=== PATIENT | female | born 1960 | race African-American/Black ===

== ENCOUNTER 2016-03-31 10:04 | Emergency (ER) | payer OTHER ==
[2016-03-31 10:24] VITALS: BP 144/70
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
== END 2016-03-31 14:53 | disposition left against medical advice (07) ==
LOC: ER 10:04
DX: M79.605 Pain in left leg (principal); I10 Essential (primary) hypertension; E11.9 Type 2 diabetes mellitus without complications; Z88.6 Allergy status to analgesic agent
CPT/HCPCS: 99281

== ENCOUNTER 2016-06-10 23:27 | Emergency (ER) | payer OTHER ==
[2016-06-10 23:32] VITALS: BP 149/66
[2016-06-11 01:42] LABS: ANION GAP 10 (5-19); BLOOD UREA NITROGEN 14 mg/dL (7-20); CALCIUM 9.1 mg/dL (8.4-10.2); CARBON DIOXIDE 29 mmol/L (22-30); CHLORIDE 104 mmol/L (98-107); CREATININE RESULT 0.56 mg/dL (0.52-1.25); GLUCOSE 163 mg/dL (75-110); MAGNESIUM 1.8 mg/dL (1.6-2.3); POTASSIUM 3.5 mmol/L (3.6-5.0)
[2016-06-11] MEDS ORDERED: METAXALONE 800 MG TABLET PO ONE (02:10)
[2016-06-11] MEDS ORDERED: POTASSIUM CHLORIDE 10 MEQ TABLET.SA PO ONE (02:10)
--- NOTE | 2016-06-11 02:22 | ER Document Report ---
ED General - General Chief Complaint: Leg Pain Stated Complaint: LEG PAIN Notes: Patient is a 56 year old female presents with complaints of spasms in her legs speech is had this multiple times before. She says in the past Skelaxin as helps. She is on hydrochlorothiazide. She does not take any other diuretics. She does take supplemental potassium every day. No fevers. No infections. No chest pain. No shortness of breath. No trauma to her legs. No other complaints at this time. TRAVEL OUTSIDE OF THE [place] IN LAST 30 DAYS: No - Related Data Allergies/Adverse Reactions: codeine Adverse Reaction (Intermediate, Verified 03/31/16 10:37) Nausea Past Medical History - Social History Smoking Status: Unknown if Ever Smoked Frequency of alcohol use: None Drug Abuse: None Family History: Reviewed & Not Pertinent Patient has suicidal ideation: No Patient has homicidal ideation: No - Past Medical History Cardiac Medical History: Reports: Hx Hypertension Endocrine Medical History: Reports: Hx Diabetes Mellitus Type 2 Renal/ Medical History: Denies: Hx Peritoneal Dialysis Musculoskeltal Medical History: Reports Hx Arthritis - KNEES, Reports Hx Musculoskeletal Trauma Past Surgical History: Reports: Hx Oral Surgery - wisdom teeth - Immunizations Hx Diphtheria, Pertussis, Tetanus Vaccination: No Review of Systems - Review of Systems Notes: My Normal Review Basic REVIEW OF SYSTEMS: CONSTITUTIONAL : Denies fever, chills, or sweats. Denies recent illness. CARDIOVASCULAR: Denies chest pain. RESPIRATORY: Denies cough, cold, or chest congestion. Denies shortness of breath, difficulty breathing, or wheezing. GASTROINTESTINAL: Denies abdominal pain. Denies nausea, vomiting, or diarrhea. Denies constipation. Last BM: MUSCULOSKELETAL: Leg cramps SKIN: Denies rash or skin lesions. NEUROLOGICAL: Denies altered mental status or loss of consciousness. Denies headache. Denies weakness or paralysis or loss of use of either side. Denies problems with gait or speech. Denies sensory or motor loss. ALL OTHER SYSTEMS REVIEWED AND NEGATIVE. Physical Exam - Vital signs Vitals: Temp Pulse Resp BP Pulse Ox 98.4 F 92 18 149/66 H 97 06/10/16 23:29 06/10/16 23:29 06/10/16 23:29 06/10/16 23:29 06/10/16 23:29 - Notes Notes: General Appearance: Well nourished, alert, cooperative, no acute distress, no obvious discomfort. Well-appearing. Vitals: reviewed, See vital signs table. Head: no swelling or tenderness to the head Eyes: PERRL, EOMI, Conjuctiva clear Mouth: No decreasd moisturealy Lungs: No wheezing, No rales, No rhonci, No accessory muscle use, good air exchange bilaterally. Heart: Normal rate, Regular rythm, No murmur, no rub Extremities: strength 5/5 in all extremities, good pulses in all extremities, no swelling or tenderness in the extremities, no edema. Skin: warm, dry, appropriate color, no rash Neuro: speech clear, oriented x 3, normal affect, responds appropriately to questions. Course - Vital Signs Vital signs: Temp Pulse Resp BP Pulse Ox 98.4 F 92 18 149/66 H 97 06/10/16 23:29 06/10/16 23:29 06/10/16 23:29 06/10/16 23:29 06/10/16 23:29 - Laboratory Result Diagrams: 06/11/16 01:24 Laboratory results interpreted by me: 06/11/16 01:24 Potassium 3.5 L Glucose 163 H - Transfer of Care Notes: 06/11/16 02:22 Patient replaced back on Skelaxin. Potassium is just slightly low. I did give her extra his potassium here. I encourage him to take her supplemental potassium at home. Encourage return to ER she has any swelling to her legs, worsening pain, chest pain or shortness of breath, or she feels unwell. Patient agrees with plan and will be discharged home. Dictation of this chart was performed using voice recognition software; therefore, there may be some unintended grammatical errors. Discharge - Discharge Clinical Impression: Hypokalemia Leg cramps Qualifiers: Laterality: bilateral Qualified Code(s): R25.2 - Cramp and spasm Condition: Good Disposition: HOME, SELF-CARE Additional Instructions: Please continue to take the potassium pills every day. Please return to the ER immediately if you have worsening leg pain, difficulty breahting, or feel unwell. Prescriptions: Metaxalone [Skelaxin 800 mg Tablet] 800 mg PO ASDIR PRN #20 tablet PRN Reason:
== END 2016-06-11 03:52 | disposition home or self-care (01) ==
LOC: ER 23:27
DX: R25.2 Cramp and spasm (principal); E87.6 Hypokalemia; Z88.6 Allergy status to analgesic agent; I10 Essential (primary) hypertension; E11.9 Type 2 diabetes mellitus without complications
CPT/HCPCS: 99284; 36415; 83735; 80048; J3490

== ENCOUNTER → 2016-08-22 | Outpatient (CLI) | payer OTHER ==
--- NOTE | 2016-08-22 14:15 | WOMENS IMAGING REPORT ---
EXAM DESCRIPTION: BILAT SCREENING MAMMO W/CAD COMPLETED DATE/TIME: 08/22/2016 9:47 am REASON FOR STUDY: ROUTINE SCREENING; Z12.31 Z12.31 ENCNTR SCREEN MAMMOGRAM FOR MALIGNANT NEOPLASM O F MALIKA COMPARISON: None. TECHNIQUE: Standard craniocaudal and mediolateral oblique views of each breast recorded using digita l acquisition. LIMITATIONS: None. FINDINGS: No masses, calcifications or architectural distortion. No areas of suspicion. Read with the assistance of CAD. .[facility] - R2 Cenova Version 1.3 .[facility] - R2 Cenova Version 1.3 .[facility] - R2 Cenova Version 2.4 .[facility] - R2 Cenova Version 2.4 .[facility] - R2 Cardiovascular Tech Version 9.2 IMPRESSION: NORMAL MAMMOGRAM. BIRADS 1. BREAST DENSITY: a. The breasts are almost entirely fatty. BIRAD: 1 NEGATIVE RECOMMENDATION: ROUTINE SCREENING COMMENT: The patient has been notified of the results by letter per SA requirements. Additional no tification policies are in place for contacting patient with suspicious or incomplete findings. Quality ID #[id number]: The [employer] recommends an annual screening mammogram for women aged 40 years or over. This facility utilizes a reminder system to ensure that all patients receive reminder letters, and/or direct phone calls for appointments. This includes reminders for routine scr eening mammograms, diagnostic mammograms, or other Breast Imaging Interventions when appropriate. Th is patient will be placed in the appropriate reminder system. The [employer] (ACR) has developed recommendations for screening MRI of the breast s in certain patient populations, to be used in conjunction with mammography. Breast MRI surveillanc e may be appropriate for women with more than 20% lifetime risk of developing breast cancer as deter mined by genetic testing, significant family history of the disease, or history of mantle radiation f or Hodgkins Disease. ACR Practice Guidelines 2008. TECHNICAL DOCUMENTATION: FINDING NUMBER: (1) ASSESSMENT: (1) JOB ID: [id number] [employer]- All Rights Reserved
== END ==
LOC: WI 09:00
PROVIDERS: ATTEND Physician Assistant
DX: Z12.31 Encounter for screening mammogram for malignant neoplasm of breast (principal)
CPT/HCPCS: 77067; G0202

== ENCOUNTER 2016-11-18 00:56 | Emergency (ER) | payer OTHER ==
[2016-11-18 01:19] VITALS: BP 124/70
--- NOTE | 2016-11-18 01:38 | ER Document Report ---
ED General - General Mode of Arrival: Ambulatory Information source: Patient TRAVEL OUTSIDE OF THE [place] IN LAST 30 DAYS: No - HPI Onset: Other - Refer to HPI notes - General Chief Complaint: Productive Cough Stated Complaint: CONGESTION Time Seen by Provider: 11/18/16 01:24 Notes: Patient is a 56 year old female presenting to the emergency department for cold- like symptoms. Patient states she has had a productive cough with brown sputum, rhinorrhea, and general malaise for the past 2-3 days. Patient states that she has been taking Zyrtec and cough syrup. Patient's PCP is [facility]. Patient has a history of type II diabetes mellitus, hypertension, and hypercholesterolemia. Patient takes a daily Aspirin. 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 (KATIE CRAVEN) - Related Data Allergies/Adverse Reactions: codeine Adverse Reaction (Intermediate, Verified 11/18/16 01:01) Nausea Past Medical History - General Information source: Patient - Social History Smoking Status: Never Smoker Cigarette use (# per day): No Chew tobacco use (# tins/day): No Smoking Education Provided: No Frequency of alcohol use: Rare Drug Abuse: None Family History: None Patient has suicidal ideation: No Patient has homicidal ideation: No - Past Medical History Cardiac Medical History: Reports: Hx Hypercholesterolemia, Hx Hypertension Endocrine Medical History: Reports: Hx Diabetes Mellitus Type 2 Musculoskeltal Medical History: Reports Hx Arthritis - KNEES, Reports Hx Musculoskeletal Trauma Past Surgical History: Reports: Hx Oral Surgery - wisdom teeth - Immunizations Hx Diphtheria, Pertussis, Tetanus Vaccination: No Review of Systems - Review of Systems Constitutional: See HPI, Malaise. denies: Fever EENT: See HPI, Nose congestion, Nose discharge Cardiovascular: No symptoms reported. denies: Chest pain Respiratory: See HPI, Cough. denies: Short of breath Gastrointestinal: denies: Nausea, Vomiting Physical Exam - Vital signs Interpretation: Normal - Vital signs Vitals: Temp Pulse Resp BP Pulse Ox 97.5 F 88 20 124/70 98 11/18/16 01:01 11/18/16 01:01 11/18/16 01:01 11/18/16 01:01 11/18/16 01:01 - Notes Notes: GENERAL: Alert, interacts well. No acute distress. HEAD: Normocephalic, atraumatic. EYES: Pupils equal, round, and reactive to light. Extraocular movements intact. ENT: Oral mucosa moist, tongue midline. Postnasal drip. Clear rhinorrhea, no turbinate edema, nares patent, no nasal septal hematoma, TM's are cloudy and slightly bulging NECK: Full range of motion. Supple. Trachea midline. LUNGS: Clear to auscultation bilaterally, no wheezes, rales, or rhonchi. No respiratory distress. HEART: Regular rate and rhythm. No murmurs, gallops, or rubs. ABDOMEN: Soft, non-tender. Non-distended. Bowel sounds present in all 4 quadrants. EXTREMITIES: Moves all 4 extremities spontaneously. No edema, radial and dorsalis pedis pulses 2/4 bilaterally. No cyanosis. NEUROLOGICAL: Alert and oriented x3. Normal speech. PSYCH: Normal affect, normal mood. SKIN: Warm, dry, normal turgor. No rashes or lesions noted. (KATIE CRAVEN) Course - Re-evaluation Re-evalutation: 11/18/16 01:38 Lungs are clear, no evidence of pneumonia, no indication for chest x-ray, discussed treatment for viral upper respiratory infection and symptomatic care. Discharged home. (RICHARD ALBERT) - Vital Signs Vital signs: Temp Pulse Resp BP Pulse Ox 97.5 F 88 20 124/70 98 11/18/16 01:01 11/18/16 01:01 11/18/16 01:01 11/18/16 01:01 11/18/16 01:01 Discharge - Discharge Clinical Impression: Viral upper respiratory tract infection with cough Condition: Stable Disposition: HOME, SELF-CARE Additional Instructions: Upper Respiratory Illness You have a viral infection of the respiratory passages -- a "cold." This common infection causes nasal congestion, drainage, and often sore throat and cough. It is caused by a virus and is highly contagious. The disease usually lasts a week or more, though the worst symptoms are usually over in 5 or 6 days. There is no "cure" for the viral infection -- it must run its course. If you smoke, you should STOP!! Drink plenty of fluids. A humidifier may help. An expectorant medication or decongestant may make you more comfortable. Use acetaminophen or ibuprofen for fever or aches. See the doctor if fever persists over two or three days, if there is any significant worsening of your symptoms, or if you simply fail to improve as expected. Please use nasal saline rinses such as a NetiPot or NeilMed Sinus Rinses. You may take Claritin, Zyrtec, Benadryl or any of your choice of over-the- counter antihistamines according to the instructions on the box to decrease your nasal congestion. Use nasal steroids such as Nasonex 1 squirt twice a day per nostril. Prescriptions: Benzonatate [Tessalon Perles 100 mg Capsule] 100 mg PO Q8HP PRN #30 capsule PRN Reason: Fluticasone Propionate [Flonase Nasal Phoenix 50 Mcg/Phoenix 16 gm] 1 spray NASL Q12 #1 inhaler Forms: Return to Work Referrals: ANEL NEWMAN MD [Primary Care Provider] - Follow up as needed Scribe Attestation: 11/18/16 05:31 I personally performed the services described in the documentation, reviewed and edited the documentation which was dictated to the scribe in my presence, and it accurately records my words and actions. (RICHARD ALBERT) Scribe Documentation - Scribe Written by Michelle:: Michelle Ma, 11/18/2016 4:20 acting as scribe for :: Tutu
== END 2016-11-18 01:54 | disposition home or self-care (01) ==
LOC: ER 00:56
DX: J06.9 Acute upper respiratory infection, unspecified (principal); B34.9 Viral infection, unspecified; R05 Cough; R09.81 Nasal congestion; R53.81 Other malaise; Z79.899 Other long term (current) drug therapy; E11.9 Type 2 diabetes mellitus without complications; I10 Essential (primary) hypertension; E78.00 Pure hypercholesterolemia, unspecified; Z79.82 Long term (current) use of aspirin
CPT/HCPCS: 99283

== ENCOUNTER 2017-01-28 12:22 | Emergency (ER) | payer OTHER ==
[2017-01-28] MEDS ORDERED: TRAMADOL HCL 50 MG TABLET PO ONE (13:14)
--- NOTE | 2017-01-28 13:17 | ER Document Report ---
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 Patient states she has had pain with ambulation since then. Patient complains of increased pain with flexion. Associated Symptoms: Other - Left knee injury Exacerbated by: Standing, Movement, Walking Relieved by: Denies Similar symptoms previously: No Recently seen / treated by doctor: No - ROS ROS below otherwise negative: Yes Systems Reviewed and Negative: Yes All other systems reviewed and negative - CONSTITUTIONAL Constitutional: DENIES: Fever - NEURO Neurology: DENIES: Weakness - REPRODUCTIVE Reproductive: DENIES: : - MUSCULOSKELETAL Musculoskeletal: REPORTS: Extremity pain - DERM Skin Color: Normal Skin Problems: None Past Medical History - General Information source: Patient - Social History Smoking Status: Never Smoker Frequency of alcohol use: None Drug Abuse: None 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 Lives with: Family Family History: None - Past Medical History Cardiac Medical History: Reports: Hx Hypercholesterolemia, Hx Hypertension Endocrine Medical History: Reports: Hx Diabetes Mellitus Type 2 Renal/ Medical History: Denies: Hx Peritoneal Dialysis Musculoskeltal Medical History: Reports Hx Arthritis - KNEES, Reports Hx Musculoskeletal Trauma Past Surgical History: Reports: Hx Oral Surgery - wisdom teeth - Immunizations Hx Diphtheria, Pertussis, Tetanus Vaccination: No Vertical Provider Document - CONSTITUTIONAL Agree With Documented VS: Yes Exam Limitations: No Limitations General Appearance: WD/WN, No Apparent Distress - INFECTION CONTROL TRAVEL OUTSIDE OF THE [place] IN LAST 30 DAYS: No - HEENT HEENT: Atraumatic, Normocephalic - NECK Neck: Normal Inspection - RESPIRATORY Respiratory: No Respiratory Distress O2 Sat by Pulse Oximetry: 100 - CARDIOVASCULAR Pulses: Normal: Dorsalis pedis - MUSCULOSKELETAL/EXTREMETIES Musculoskeletal/Extremeties: MAEW, Tender - Left knee joint tenderness to medial compartment, no obvious effusion, no laxity with varus or valgus maneuvers. Patellar tendon intact. negative: Eccymosis - NEURO Level of Consciousness: Awake, Alert, Appropriate Motor/Sensory: No Motor Deficit - DERM Integumentary: Warm, Dry Course - Vital Signs Vital signs: Temp Pulse Resp BP Pulse Ox 97.8 F 78 20 160/66 H 100 01/28/17 12:43 01/28/17 12:43 01/28/17 12:43 01/28/17 12:43 01/28/17 12:43 - Diagnostic Test Radiology reviewed: Image reviewed, Reports reviewed Procedures - Immobilization Left Knee Pre-Proc Neuro Vasc Exam: Normal Immobilizer type: Glen wrap Performed by: PCT Post-Proc Neuro Vasc Exam: Normal Alignment checked and good: Yes Discharge - Discharge Clinical Impression: Hx of essential hypertension Left knee sprain Qualifiers: Encounter type: initial encounter Involved ligament of knee: unspecified ligament Qualified Code(s): S83.92XA - Sprain of unspecified site of left knee, initial encounter Condition: Stable Disposition: HOME, SELF-CARE Instructions: Use of Crutches ([facility]), Ice & Elevation ([facility]), Sprained Knee ([facility]) Additional Instructions: Return immediately for any new or worsening symptoms Followup with your primary care provider, call tomorrow to make a followup appointment Weightbearing as tolerated Follow-up with orthopedic doctor for any continued pain or problems Prescriptions: Tramadol HCl [Ultram 50 mg Tablet] 50 mg PO ASDIR PRN #20 tablet PRN Reason: Forms: Elevated Blood Pressure, Return to Work Referrals: [facility] ([facility]ANIEL) [Provider Group] - Follow up as needed
--- NOTE | 2017-01-28 14:16 | RADIOLOGY REPORT (SQ) ---
EXAM DESCRIPTION: KNEE LEFT 4 VIEW COMPLETED DATE/TIME: 01/28/2017 1:44 pm REASON FOR STUDY: twisted left knee COMPARISON: None. NUMBER OF VIEWS: Four views. TECHNIQUE: AP, lateral, and both oblique radiographic images acquired of the left knee. LIMITATIONS: None. FINDINGS: MINERALIZATION: Normal. BONES: No fracture. Small osteochondroma proximal tibia. JOINT: No effusion. SOFT TISSUES: No soft tissue swelling. No radio-opaque foreign body. OTHER: No other significant finding. IMPRESSION: NO RADIOGRAPHIC EVIDENCE OF ACUTE INJURY. TECHNICAL DOCUMENTATION: JOB ID: [id number] [employer]- All Rights Reserved
[2017-01-28 15:08] VITALS: BP 177/75
== END 2017-01-28 15:08 | disposition home or self-care (01) ==
LOC: ER 12:22
DX: S83.92XA Sprain of unspecified site of left knee, initial encounter (principal); M25.561 Pain in right knee; X58.XXXA Exposure to other specified factors, initial encounter
CPT/HCPCS: 99283

== ENCOUNTER → 2017-02-03 | Outpatient (CLI) | payer OTHER ==
--- NOTE | 2017-02-04 13:14 | RADIOLOGY REPORT (SQ) ---
EXAM DESCRIPTION: MRI LT LOWER JOINT WITHOUT COMPLETED DATE/TIME: 02/03/2017 11:21 am REASON FOR STUDY: PERIPHERAL TEAR OF MEDIAL MENISCUS OF LEFT KNEE S83.222A PRPH TEAR OF MEDIAL MENI SCUS, CURRENT INJURY, L KNE COMPARISON: Plain radiograph TECHNIQUE: Leftknee images acquired and stored on PACS. Multiplanar images include fat sensitive se quences as T1, water sensitive sequences as FST2 or STIR, cartilage sensitive sequences as FSPD, and gradient echo sequences. LIMITATIONS: None. FINDINGS: JOINT AND BURSAE: Joint effusion. No popliteal cyst. BONE CORTEX AND MARROW: No alteration of signal to suggest marrow replacement. No worrisome bone lesi ons. No occult fracture. ACL: Intact. No degeneration or ganglion cyst. PCL: Intact. MCL: Intact. No periligamentous edema or fluid. LCL: Intact. No periligamentous edema or fluid. MEDIAL MENISCUS: Flap tear posteromedial meniscus. No subluxation. LATERAL MENISCUS: Flap tear posterior horn. MEDIAL COMPARTMENT: Cartilage preserved. No bone bruises or reactive marrow edema. No osteophytes. LATERAL COMPARTMENT: Cartilage preserved. No bone bruises or reactive marrow edema. No osteophytes. PATELLA: Chondromalacia most prominent medial facet. Loss of medial trochlear cartilage. Patellofem oral osteophytes. EXTENSOR MECHANISM: Intact. Quadriceps and patella tendons normal. SOFT TISSUES: Adjacent muscles and subcutaneous tissues normal. Normal flow void in popliteal artery and vein. OTHER: No other significant finding. IMPRESSION: Flap tears of the posterior horns of both menisci. Patellar chondromalacia and patellofemoral osteophytes. Joint effusion. TECHNICAL DOCUMENTATION: JOB ID: [id number] [employer]- All Rights Reserved
== END ==
LOC: RAD 10:26
PROVIDERS: ATTEND Orthopaedic Surgery
DX: S83.222A Peripheral tear of medial meniscus, current injury, left knee, initial encounter (principal); M22.42 Chondromalacia patellae, left knee

== ENCOUNTER 2017-03-27 10:31 | Emergency (ER) | payer OTHER ==
[2017-03-27 10:37] VITALS: BP 149/60
== END 2017-03-27 11:54 | disposition left against medical advice (07) ==
LOC: ER 10:31
DX: Z53.21 Procedure and treatment not carried out due to patient leaving prior to being seen by health care provider (principal); M79.606 Pain in leg, unspecified

== ENCOUNTER 2017-04-02 08:59 | Emergency (ER) | payer OTHER ==
--- NOTE | 2017-04-02 10:10 | RADIOLOGY REPORT (SQ) ---
EXAM DESCRIPTION: KNEE RIGHT 4 VIEWS COMPLETED DATE/TIME: 04/02/2017 10:01 am REASON FOR STUDY: fall on sunday COMPARISON: None. NUMBER OF VIEWS: Four views. TECHNIQUE: AP, lateral, and both oblique radiographic images acquired of the right knee. LIMITATIONS: None. FINDINGS: MINERALIZATION: Normal. BONES: No acute fracture or dislocation. No worrisome bone lesions. Osteoarthritis. JOINT: No effusion. SOFT TISSUES: No soft tissue swelling. No radio-opaque foreign body. OTHER: No other significant finding. IMPRESSION: No acute fracture. Osteoarthritis. TECHNICAL DOCUMENTATION: JOB ID: [id number] [employer]- All Rights Reserved
--- NOTE | 2017-04-02 10:11 | RADIOLOGY REPORT (SQ) ---
EXAM DESCRIPTION: KNEE LEFT 4 VIEW COMPLETED DATE/TIME: 04/02/2017 10:01 am REASON FOR STUDY: fall on sunday COMPARISON: 01/28/2017 NUMBER OF VIEWS: Four views. TECHNIQUE: AP, lateral, and both oblique radiographic images acquired of the left knee. LIMITATIONS: None. FINDINGS: MINERALIZATION: Normal. BONES: No acute fracture or dislocation. No worrisome bone lesions. 3 compartment osteoarthritis. JOINT: Small joint effusion. SOFT TISSUES: No soft tissue swelling. No radio-opaque foreign body. OTHER: No other significant finding. IMPRESSION: Small joint effusion. 3 compartment osteoarthritis. TECHNICAL DOCUMENTATION: JOB ID: [id number] [employer]- All Rights Reserved
[2017-04-02] MEDS ORDERED: IBUPROFEN 800 MG TABLET PO ONE (10:29)
[2017-04-02] MEDS ORDERED: ACETAMINOPHEN 325 MG TABLET PO ONE (10:29)
--- NOTE | 2017-04-02 10:34 | ER Document Report ---
HPI - HPI Patient complains to provider of: fell 1 week ago Onset: Last week Onset/Duration: Sudden Pain Level: 4 Context: 56 yo female fell forward 1 week ago onto both knees, also "hurt" it pulling on 400 pound pt at work. Hx left medial meniscal tear on MR and bryon. knee severe arthritis. 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 [employer] Similar symptoms previously: Yes Recently seen / treated by doctor: No - ROS ROS below otherwise negative: Yes Systems Reviewed and Negative: Yes All other systems reviewed and negative - REPRODUCTIVE Reproductive: DENIES: : - MUSCULOSKELETAL Musculoskeletal: REPORTS: Extremity pain Past Medical History - General Information source: Patient - Social History Smoking Status: Never Smoker Chew tobacco use (# tins/day): No Frequency of alcohol use: None Drug Abuse: None Lives with: Family Family History: None Patient has suicidal ideation: No Patient has homicidal ideation: No - Past Medical History Cardiac Medical History: Reports: Hx Hypercholesterolemia, Hx Hypertension Endocrine Medical History: Reports: Hx Diabetes Mellitus Type 2 Renal/ Medical History: Denies: Hx Peritoneal Dialysis Musculoskeltal Medical History: Reports Hx Arthritis - KNEES, Reports Hx Musculoskeletal Trauma Surgical Hx: Negative Past Surgical History: Reports: Hx Oral Surgery - wisdom teeth - Immunizations Hx Diphtheria, Pertussis, Tetanus Vaccination: No Vertical Provider Document - CONSTITUTIONAL Agree With Documented VS: Yes Exam Limitations: No Limitations General Appearance: No Apparent Distress - INFECTION CONTROL TRAVEL OUTSIDE OF THE [place] IN LAST 30 DAYS: No - HEENT HEENT: Normocephalic - NECK Neck: Supple - RESPIRATORY O2 Sat by Pulse Oximetry: 99 - MUSCULOSKELETAL/EXTREMETIES Musculoskeletal/Extremeties: MAEW, FROM, Tender - left knee, mild effusion, not hot or red - NEURO Level of Consciousness: Awake, Alert, Appropriate Motor/Sensory: No Motor Deficit, No Sensory Deficit - DERM Integumentary: Warm, Dry, No Rash Course - Re-evaluation Re-evalutation: 04/02/17 arthrits bryon on xray, small effusion left knee - Vital Signs Vital signs: Temp Pulse Resp BP Pulse Ox 98.6 F 67 16 173/79 H 99 04/02/17 09:28 04/02/17 09:28 04/02/17 09:28 04/02/17 09:04/02/17 09:28 Discharge - Discharge Clinical Impression: small left knee joint effusion, arthritis bilateral knees Condition: Good Disposition: HOME, SELF-CARE Instructions: Acetaminophen, Anti-Inflammatory Medication ([facility]), Arthritis ([facility] ), Use of Crutches ([facility]), Elevation & Warmth ([facility]) Additional Instructions: elevate warm compress see dr ferreira again for follow up to er any concerns Prescriptions: Ibuprofen [Motrin 800 mg Tablet] 800 mg PO Q8HP PRN #30 tablet PRN Reason: Forms: Restricted Release, Return to Work Referrals: SHERLY FERREIRA MD [ACTIVE STAFF] - Follow up tomorrow
[2017-04-02 11:02] VITALS: BP 153/76
== END 2017-04-02 11:08 | disposition home or self-care (01) ==
LOC: ER 08:59
DX: M25.462 Effusion, left knee (principal); M17.0 Bilateral primary osteoarthritis of knee; M25.561 Pain in right knee; M25.562 Pain in left knee; W19.XXXA Unspecified fall, initial encounter; X50.0XXA Overexertion from strenuous movement or load, initial encounter
CPT/HCPCS: 99283

== ENCOUNTER 2017-07-16 18:08 | Emergency (ER) | payer SELFPAY ==
[2017-07-16 18:17] VITALS: BP 182/80
== END 2017-07-16 21:50 | disposition left against medical advice (07) ==
LOC: ER 18:08
DX: Z53.21 Procedure and treatment not carried out due to patient leaving prior to being seen by health care provider (principal)

== ENCOUNTER 2018-01-30 17:16 | Emergency (ER) | payer MEDICAID, OTHER ==
--- NOTE | 2018-01-30 18:10 | ER Document Report ---
ED Medical Screen (RME) - General Chief Complaint: Rectal Bleeding Stated Complaint: BACK PAIN, LEFT SIDE PAIN Time Seen by Provider: 01/30/18 18:08 Notes: 57 years old female presents today with hemorrhoid and hemorrhoid bleed on and off for the last few days. With abdominal pain TRAVEL OUTSIDE OF THE [place] IN LAST 30 DAYS: No - Related Data Allergies/Adverse Reactions: codeine Adverse Reaction (Intermediate, Verified 01/30/18 17:19) Nausea Past Medical History - Social History Frequency of alcohol use: None Drug Abuse: None - Past Medical History Cardiac Medical History: Reports: Hx Hypercholesterolemia, Hx Hypertension Endocrine Medical History: Reports: Hx Diabetes Mellitus Type 2 Renal/ Medical History: Denies: Hx Peritoneal Dialysis Musculoskeltal Medical History: Reports Hx Arthritis - KNEES, Reports Hx Musculoskeletal Trauma Past Surgical History: Reports: Hx Oral Surgery - wisdom teeth - Immunizations Hx Diphtheria, Pertussis, Tetanus Vaccination: No Physical Exam - Vital signs Vitals: Temp Pulse Resp BP Pulse Ox 97.9 F 70 20 147/66 H 100 01/30/18 17:31 01/30/18 17:31 01/30/18 17:31 01/30/18 17:31 01/30/18 17:31 Course - Vital Signs Vital signs: Temp Pulse Resp BP Pulse Ox 97.9 F 70 20 147/66 H 100 01/30/18 17:31 01/30/18 17:31 01/30/18 17:31 01/30/18 17:31 01/30/18 17:31
--- NOTE | 2018-01-30 20:16 | ER Document Report ---
ED Extremity Problem, Upper - General Chief Complaint: Rectal Bleeding Stated Complaint: BACK PAIN, LEFT SIDE PAIN Time Seen by Provider: 01/30/18 18:08 Mode of Arrival: Ambulatory Information source: Patient Notes: 57-year-old female presented to ED for complaint of upper back right shoulder pain for the last 3 weeks. She states that for the last week she has had some very hard stools and when she has a hard stool she will have some bleeding with the stool and it only last for her wiping herself after the stool. She states she has had some abdominal cramping with the constipation but that is not why she is here today. She states she is here today for the upper back and shoulder pain. Patient is alert and oriented respirations regular and unlabored speaking in full sentences. TRAVEL OUTSIDE OF THE [place] IN LAST 30 DAYS: No - HPI Patient complains to provider of: Pain, Right, Shoulder, Other - Right upper back Onset: Other - 3-4 weeks Recent injury: Possibly Quality of pain: Achy, Cramping, Sharp Pain Level: 4 Associated symptoms: Other - Right shoulder and upper back pain Exacerbated by: Movement, Exertion Relieved by: Nothing Similar symptoms previously: Yes Recently seen / treated by doctor: Yes - Related Data Allergies/Adverse Reactions: codeine Adverse Reaction (Intermediate, Verified 01/30/18 17:19) Nausea Past Medical History - General Information source: Patient - Social History Smoking Status: Never Smoker Cigarette use (# per day): No Chew tobacco use (# tins/day): No Smoking Education Provided: No Frequency of alcohol use: None Drug Abuse: None Lives with: Family Family History: None Patient has suicidal ideation: No Patient has homicidal ideation: No - Past Medical History Cardiac Medical History: Reports: Hx Hypercholesterolemia, Hx Hypertension Pulmonary Medical History: Reports: None EENT Medical History: Reports: None Neurological Medical History: Reports: None Endocrine Medical History: Reports: Hx Diabetes Mellitus Type 2 Renal/ Medical History: Reports: None Malignancy Medical History: Reports: None GI Medical History: Reports: None Musculoskeletal Medical History: Reports Hx Arthritis - KNEES, Reports Hx Musculoskeletal Trauma Skin Medical History: Reports None Psychiatric Medical History: Reports: None Traumatic Medical History: Reports: None Infectious Medical History: Reports: None Past Surgical History: Reports: Hx Oral Surgery - wisdom teeth - Immunizations Hx Diphtheria, Pertussis, Tetanus Vaccination: No Review of Systems - Review of Systems Constitutional: No symptoms reported EENT: No symptoms reported Cardiovascular: No symptoms reported Respiratory: No symptoms reported Gastrointestinal: Other - Blood on the paper when she has a hard bowel movement during constipation. She states that now she is back on her Metformin she does not constipated Genitourinary: No symptoms reported Female Genitourinary: No symptoms reported Musculoskeletal: Back pain - Pain to the right upper back and right shoulder for 3-4 weeks, Muscle pain, Muscle stiffness Skin: No symptoms reported Hematologic/Lymphatic: No symptoms reported Neurological/Psychological: No symptoms reported -: Yes All other systems reviewed and negative Physical Exam - Vital signs Vitals: Temp Pulse Resp BP Pulse Ox 97.9 F 70 20 147/66 H 100 01/30/18 17:31 01/30/18 17:31 01/30/18 17:31 01/30/18 17:31 01/30/18 17:31 Interpretation: Normal - General General appearance: Appears well, Alert - HEENT Head: Normocephalic, Atraumatic Eyes: Normal Pupils: PERRL - Respiratory Respiratory status: No respiratory distress Chest status: Nontender Breath sounds: Normal Chest palpation: Normal - Cardiovascular Rhythm: Regular Heart sounds: Normal auscultation Murmur: No - Abdominal Inspection: Normal Distension: No distension Bowel sounds: Normal Tenderness: Nontender Organomegaly: No organomegaly - Rectal Tenderness: Yes Hemorrhoids: None - Back Back: Normal, Tender - Right upper back right shoulder. No: Vertebra tenderness - Extremities General upper extremity: Normal inspection, Normal color, Normal ROM, Normal temperature General lower extremity: Normal inspection, Nontender, Normal color, Normal ROM , Normal temperature, Normal weight bearing. No: Gonzales's sign Shoulder: Tender. No: Abrasion, Deformity, Dislocation, Ecchymosis, Instability , Laceration, Limited ROM - Neurological Neuro grossly intact: Yes Cognition: Normal Orientation: AAOx4 Cardinal Coma Scale Eye Opening: Spontaneous Cardinal Coma Scale Verbal: Oriented Tashi Coma Scale Motor: Obeys Commands Cardinal Coma Scale Total: 15 Speech: Normal Motor strength normal: LUE, RUE, LLE, RLE Sensory: Normal - Psychological Associated symptoms: Normal affect, Normal mood - Skin Skin Temperature: Warm Skin Moisture: Dry Skin Color: Normal Course - Vital Signs Vital signs: Temp Pulse Resp BP Pulse Ox 98.3 F 66 20 147/72 H 99 01/30/18 21:37 01/30/18 21:37 01/30/18 17:31 01/30/18 21:37 01/30/18 21:37 - Diagnostic Test Radiology reviewed: Image reviewed, Reports reviewed Discharge - Discharge Clinical Impression: Scoliosis of thoracic region due to degenerative disease of spine in adult, arthritis upper back Condition: Stable Disposition: HOME, SELF-CARE Instructions: Exercise Program for the Shoulder ([facility]), Stretching Exercises for the Back ([facility]) Additional Instructions: Arthritis Your symptoms are due to arthritis. Arthritis is an inflammation of the joints. There are many types -- osteoarthritis (due to "wear and tear"), auto- immmune arthritis (such as rheumatoid, lupus, Harshad's, and others), and crystal -induced arthritis (such as gout and pseudogout). The physician's examination, combined with laboratory tests, will determine the cause of your arthritis. All types of arthritis are treated with antiinflammatory medications. Other medication may be required for special types of arthritis, or if your problem does not respond to the antiinflammatory medicine. Local warmth may be helpful. Move the involved joints through the full range of motion daily. Mild exercise is usually still possible for most persons with arthritis (ask your physician). Swimming provides good exercise without damaging the joints. Contact the physician if you are worsening in any way. MUSCLE RELAXERS: Muscle relaxing medications are usually prescribed for acute muscle spasm or injury to the neck and back. They are often combined with antiinflammatory pain medication for increased relief. You may stop the muscle relaxer when the pain and stiffness have improved. Start the medication again if spasms recur. Muscle relaxers may cause drowsiness, especially with the first dose. Do not operate machinery or drive while under the effects of the medication. Most muscle relaxers last up to 24 hours. Do not combine the medication with alcohol. ICE PACKS: Apply ice packs frequently against the painful area. Many different schedules are recommended, such as "20 minutes on, 20 minutes off" or "one hour ice, two hours rest." If you need to work, you may need to go longer between ice treatments. You should plan to have the area ice packed AT LEAST one fourth of the time. The ice should be applied over the wrap, tape, or splint, or over a layer of cloth -- not directly against the skin. Some ice bags have a built-in cloth and can be put directly on the skin. WARM PACKS: After approximately two days, apply gentle heat (such as a heating pad or hot water bottle) for about 20 to 30 minutes about every two hours -- at least four times daily. Warmth and elevation will help you make a more rapid recovery , and will ease the pain considerably. Do not use HOT heat, and never apply heat for longer than 30 minutes. The continuous heat can invisibly damage skin and muscles -- even when no burn is seen on the surface. Damaged muscles can make you MORE sore. FOLLOW-UP CARE: If you have been referred to a physician for follow-up care, call the physician s office for an appointment as you were instructed or within the next two days. If you experience worsening or a significant change in your symptoms, notify the physician immediately or return to the Emergency Department at any time for re-evaluation. These call your primary doctor in the morning to schedule follow-up appointment and get referral to a mechanical service specialist for your back pain. As I discussed with you your x-ray showed scoliosis and arthritis. Please take your x-rays with you to the appointment. Prescriptions: Cyclobenzaprine HCl [Flexeril 10 mg Tablet] 10 mg PO BIDP PRN #10 tab PRN Reason: Forms: Elevated Blood Pressure
--- NOTE | 2018-01-30 20:44 | RADIOLOGY REPORT (SQ) ---
EXAM DESCRIPTION: T SPINE AP/LAT COMPLETED DATE/TIME: 01/30/2018 8:28 pm REASON FOR STUDY: pain in upper back and right shoulder COMPARISON: None. NUMBER OF VIEWS: Two views. TECHNIQUE: AP and lateral radiographic images acquired of the thoracic spine. LIMITATIONS: None. FINDINGS: MINERALIZATION: Normal. ALIGNMENT: Mild scoliosis in the lower thoracic spine. VERTEBRAE: No fracture or bone lesion. Maintained height, normal segmentation. DISCS: Disc spaces are maintained. There are bridging osteophytes in the midthoracic spine. HARDWARE: None in the spine. MEDIASTINUM AND SOFT TISSUES: Normal heart size and aortic contour. No soft tissue abnormality. VISUALIZED LUNG SAHU: Clear. OTHER: No other significant finding. IMPRESSION: Scoliosis. Spondylosis. No acute findings. TECHNICAL DOCUMENTATION: JOB ID: [id number] [employer]- All Rights Reserved Reading location - IP/workstation name: [email or web address]
--- NOTE | 2018-01-30 20:44 | RADIOLOGY REPORT (SQ) ---
EXAM DESCRIPTION: SHOULDER RIGHT 2 OR MORE VIEWS COMPLETED DATE/TIME: 01/30/2018 8:28 pm REASON FOR STUDY: pain in upper back and right shoulder COMPARISON: None. NUMBER OF VIEWS: Three views. TECHNIQUE: Internal rotation, external rotation, and Y view images acquired of the right shoulder. LIMITATIONS: None. FINDINGS: MINERALIZATION: Normal. BONES: No acute fracture or dislocation. No worrisome bone lesions. JOINTS: No dislocation. VISUALIZED LUNGS AND RIBS: No pneumothorax. No rib fracture. SOFT TISSUES: No radiopaque foreign body. OTHER: No other significant finding. IMPRESSION: NEGATIVE STUDY OF THE RIGHT SHOULDER. NO RADIOGRAPHIC EVIDENCE OF ACUTE INJURY. TECHNICAL DOCUMENTATION: JOB ID: [id number] [employer]- All Rights Reserved Reading location - IP/workstation name: [email or web address]
--- NOTE | 2018-01-30 20:45 | RADIOLOGY REPORT (SQ) ---
EXAM DESCRIPTION: CHEST 2 VIEWS COMPLETED DATE/TIME: 01/30/2018 8:28 pm REASON FOR STUDY: upper back pain COMPARISON: None. EXAM PARAMETERS: NUMBER OF VIEWS: two views TECHNIQUE: Digital Frontal and Lateral radiographic views of the chest acquired. RADIATION DOSE: NA LIMITATIONS: none FINDINGS: LUNGS AND PLEURA: No opacities, masses or pneumothorax. No pleural effusion. MEDIASTINUM AND HILAR STRUCTURES: No masses or contour abnormalities. HEART AND VASCULAR STRUCTURES: Heart normal size. No evidence for failure. BONES: No acute findings. HARDWARE: None in the chest. OTHER: No other significant finding. IMPRESSION: NO ACUTE RADIOGRAPHIC FINDING IN THE CHEST. TECHNICAL DOCUMENTATION: JOB ID: [id number] Robert Applebaum MD- All Rights Reserved Reading location - IP/workstation name: [email or web address]
[2018-01-30 21:38] VITALS: BP 147/72
== END 2018-01-30 21:48 | disposition home or self-care (01) ==
LOC: ER 17:16
DX: M51.34 Other intervertebral disc degeneration, thoracic region (principal); M41.54 Other secondary scoliosis, thoracic region; M47.9 Spondylosis, unspecified; M25.511 Pain in right shoulder; K62.5 Hemorrhage of anus and rectum; I10 Essential (primary) hypertension; E11.9 Type 2 diabetes mellitus without complications
CPT/HCPCS: 71046; 72070; 82272; 99284

== ENCOUNTER 2018-05-30 19:55 | Emergency (ER) | payer MEDICAID ==
--- NOTE | 2018-05-30 21:11 | ER Document Report ---
Addendum entered and electronically signed by KENNEDI WRIGHT PA-C 05/30/18 21:15: Discharge - Discharge Clinical Impression: Elevated blood pressure reading Condition: Good Disposition: HOME, SELF-CARE Instructions: High Blood Pressure, Requiring Treatment ([facility]) Additional Instructions: Please keep a journal of your blood pressure recordings. Follow-up with your doctor at the appointed time. Referrals: YESI CAIN FNP [Primary Care Provider] - Follow up in 3-5 days Print Language: Upper Sorbian Original Note: ED General - General Chief Complaint: High Blood Pressure Stated Complaint: BLOOD PRESSURE CHECK Time Seen by Provider: 05/30/18 20:44 Primary Care Provider: YESI CAIN FNP [Primary Care Provider] - Follow up in 3-5 days Mode of Arrival: Ambulatory Information source: Patient TRAVEL OUTSIDE OF THE [place] IN LAST 30 DAYS: No - HPI Patient complains to provider of: Blood pressure check Onset: This morning Onset/Duration: Gradual Quality of pain: No pain Severity: None Pain Level: Denies Associated symptoms: None Exacerbated by: Denies Relieved by: Denies Similar symptoms previously: No Recently seen / treated by doctor: No Notes: 57-year-old -[place] female with history of hypertension went to her doctor this morning. Blood pressure was 170/102. She was put on 25 mg hydralazine twice a day instead of 10 mg of hydralazine twice a day. Also taking telmisartan in between hydralazine doses. Here to check to see if her blood pressure improved. Otherwise is asymptomatic. - Related Data Allergies/Adverse Reactions: codeine Adverse Reaction (Intermediate, Verified 01/30/18 17:19) Nausea Past Medical History - General Information source: Patient - Social History Smoking Status: Never Smoker Family History: None, Reviewed & Not Pertinent - Past Medical History Cardiac Medical History: Reports: Hx Hypercholesterolemia, Hx Hypertension Endocrine Medical History: Reports: Hx Diabetes Mellitus Type 2 Renal/ Medical History: Denies: Hx Peritoneal Dialysis Musculoskeletal Medical History: Reports Hx Arthritis - KNEES, Reports Hx Musculoskeletal Trauma Past Surgical History: Reports: Hx Oral Surgery - wisdom teeth - Immunizations Hx Diphtheria, Pertussis, Tetanus Vaccination: No Review of Systems - Review of Systems Notes: Constitutional: No fevers. No chills. EENT: No eye redness. No eye pain. No ear pain. No sore throat. Cardiovascular: No chest pain. No palpitations. Respiratory: No cough. No shortness of breath. No respiratory distress. Gastrointestinal: No abdominal pain. No nausea, vomiting, or diarrhea. Genitourinary: Atraumatic. No lesions. No pain. No discharge. Musculoskeletal: Atraumatic. No swelling. No deformities. Skin: No rash or lesions. Lymphatic: No swollen lymph nodes. Neurologic: No headache. No syncope. Psychiatric: No suicidal or homicidal ideation. Physical Exam - Vital signs Vitals: Temp Pulse Resp BP Pulse Ox 98.0 F 91 14 155/79 H 97 05/30/18 20:19 05/30/18 20:19 05/30/18 20:19 05/30/18 20:19 05/30/18 20:19 - Notes Notes: General: Well-developed, well-nourished. In no acute distress. Non-toxic appearing. Cardiac: Well-perfused. Regular rate and rhythm. No murmurs, rubs, or gallops. Pulmonary: No respiratory distress. No cyanosis. Bilateral lung m[place] are clear to auscultation. Abdominal: Non-distended. Non-rigid. Bowels sounds are present in all four quadrants. No guarding or rebound. HEENT: Head is atraumatic. Conjunctivae not reddened. No tearing. PERRL. EOMI. Orbits atraumatic. No periorbital swelling or erythema. Oropharynx is without erythema, swelling, or exudates. Neck: Supple. No adenopathy. No meningismus. Dermatologic: Warm with good turgor. No rash. Atraumatic. Chest: Atraumatic. No chest wall tenderness to palpation. Musculoskeletal: Moves all extremities well. No range of motion deficits. no muscular or joint tenderness. No paraspinal muscle tenderness. no midline spinal tenderness or step-off. Genitourinary: Examination deferred Neurologic: No gross neurologic deficits. Psychiatric: Normal mood. Course - Vital Signs Vital signs: Temp Pulse Resp BP Pulse Ox 98.0 F 91 14 155/79 H 97 05/30/18 20:19 05/30/18 20:19 05/30/18 20:19 05/30/18 20:19 05/30/18 20:19 Discharge - Discharge Clinical Impression: Elevated blood pressure reading Condition: Good Disposition: HOME, SELF-CARE Instructions: High Blood Pressure, Requiring Treatment ([facility]) Additional Instructions: Please keep a journal of your blood pressure recordings. Follow-up with your doctor at the appointed time. Referrals: YESI CAIN FNP [Primary Care Provider] - Follow up in 3-5 days Print Language: Upper Sorbian
[2018-05-30 21:34] VITALS: BP 153/78
== END 2018-05-30 21:41 | disposition home or self-care (01) ==
LOC: ER 19:55
DX: I10 Essential (primary) hypertension (principal); E78.00 Pure hypercholesterolemia, unspecified; E11.9 Type 2 diabetes mellitus without complications; Z88.6 Allergy status to analgesic agent
CPT/HCPCS: 99283

== ENCOUNTER 2019-02-19 18:18 | Emergency (ER) | payer MEDICAID ==
--- NOTE | 2019-02-19 18:51 | ER Document Report ---
ED Medical Screen (RME) - General Chief Complaint: Nausea/Vomiting Stated Complaint: NAUSEA Time Seen by Provider: 02/19/19 18:46 Primary Care Provider: YESI CAIN FNP [Primary Care Provider] - Follow up as needed Mode of Arrival: Wheelchair Information source: Patient Notes: 58-year-old female with history of diabetes presents emergency department with complaints of nausea vomiting all day. Denies fever or diarrhea. Reports she did contact EMS and they gave her Zofran at approximately 1800 today. She reports she does not feel as nauseated now. Reports decreased p.o. intake. Patient received her flu vaccine. I have greeted and performed a rapid initial assessment of this patient. A comprehensive ED assessment and evaluation of the patient, analysis of test results and completion of the medical decision making process will be conducted by additional ED providers. TRAVEL OUTSIDE OF THE [place] IN LAST 30 DAYS: No - Related Data Allergies/Adverse Reactions: codeine Adverse Reaction (Intermediate, Verified 02/19/19 18:50) Nausea Past Medical History - Social History Frequency of alcohol use: None - Past Medical History Cardiac Medical History: Reports: Hx Hypercholesterolemia, Hx Hypertension Endocrine Medical History: Reports: Hx Diabetes Mellitus Type 2 Renal/ Medical History: Denies: Hx Peritoneal Dialysis Musculoskeltal Medical History: Reports Hx Arthritis - KNEES, Reports Hx Musculoskeletal Trauma Past Surgical History: Reports: Hx Oral Surgery - wisdom teeth - Immunizations Hx Diphtheria, Pertussis, Tetanus Vaccination: No Physical Exam - Vital signs Vitals: Temp Pulse Resp BP Pulse Ox 98.2 F 117 H 20 158/83 H 95 02/19/19 18:22 02/19/19 18:22 02/19/19 18:22 02/19/19 18:22 02/19/19 18:22 Course - Vital Signs Vital signs: Temp Pulse Resp BP Pulse Ox 98.2 F 117 H 20 158/83 H 95 02/19/19 18:22 02/19/19 18:22 02/19/19 18:22 02/19/19 18:22 02/19/19 18:22 Doctor's Discharge - Discharge Referrals: YESI CAIN FNP [Primary Care Provider] - Follow up as needed
[2019-02-19 20:41] LABS: ABSOLUTE LYMPHOCYTES (AUTO) 0.3 10^3/uL (0.5-4.7); ABSOLUTE MONOCYTES (AUTO) 0.2 10^3/uL (0.1-1.4); ABSOLUTE NEUT (AUTO) 5.2 10^3/uL (1.7-8.2); BASOPHILS % (AUTO) 0.4 % (0-2); EOSINOPHILS % (AUTO) 0.7 % (0-6); HEMATOCRIT 40.5 % (36.0-47.0); HEMOGLOBIN 13.2 g/dL (12.0-15.5); LYMPHOCYTES % (AUTO) 5.8 % (13-45); MEAN CORPUSCULAR HEMOGLOBIN 27.3 pg (27.0-33.4); MEAN CORPUSCULAR HGB CONC 32.7 g/dL (32.0-36.0); MEAN CORPUSCULAR VOLUME 84 fl (80-97); MONOCYTES % (AUTO) 4.2 % (3-13); PLATELET COUNT 247 10^3/uL (150-450); RED BLOOD COUNT 4.84 10^6/uL (3.72-5.28); SEGMENTED NEUTROPHILS % (AUTO) 88.9 % (42-78); TOTAL CELLS COUNTED % (AUTO) 100 %; WHITE BLOOD COUNT 5.9 10^3/uL (4.0-10.5)
--- NOTE | 2019-02-19 20:44 | ER Document Report ---
ED General - General Chief Complaint: Nausea/Vomiting Stated Complaint: NAUSEA Time Seen by Provider: 02/19/19 18:46 Primary Care Provider: YESI CAIN FNP [Primary Care Provider] - Follow up tomorrow (For next available appointment to discuss medication induced pancreatitis.) Mode of Arrival: Wheelchair TRAVEL OUTSIDE OF THE [place] IN LAST 30 DAYS: No - HPI Notes: 58F h/o htn, DM on oral meds only including janumet, is bibems and now accompanied by (daughter in her early 20s) for pain in her abdomen of onset a few hours ago. she says it was w/in ~30 min s/p eating when started to notice severe boring pain mid abd that didn't radiate and hasn't migrated, a/w nausea and onset of vomiting. she called EMS since it seemed so sudden and had never had this before. says total # of emeses ~5 nbnb now is not hungry at all and pain is still present but not as bad as when onset or when she was throwing up. denies any recent fever or diarrhea or changes in bowel movements she says. since she took single dost ODT Zofran en route ~1800; nausea since improved and hasn't had further episodes vomiting. she doesn't drink alchol hardly ever she says. denies any changes to dosing/timing or additions/deletions in her meds which we reviewed together thoroughly as per below list. denies any episodes of low sugars. no vaginal d/c pain or bleeding. no urinary complaints. reports taking all meds as usual and as Rx'd except today's b/c vomiting. denies any cp, back pain, vision changes, CHAUHAN/neck pain, or (near) syncope. - Related Data Allergies/Adverse Reactions: codeine Adverse Reaction (Intermediate, Verified 02/19/19 18:50) Nausea Past Medical History - General Information source: Patient - Social History Smoking Status: Never Smoker Frequency of alcohol use: None Lives with: Family - w/ her only daughter Family History: None, Reviewed & Not Pertinent Patient has suicidal ideation: No Patient has homicidal ideation: No - Past Medical History Cardiac Medical History: Reports: Hx Hypercholesterolemia, Hx Hypertension Endocrine Medical History: Reports: Hx Diabetes Mellitus Type 2 Renal/ Medical History: Denies: Hx Peritoneal Dialysis Musculoskeletal Medical History: Reports Hx Arthritis - KNEES, Reports Hx Musculoskeletal Trauma Past Surgical History: Reports: Hx Oral Surgery - wisdom teeth - Immunizations Hx Diphtheria, Pertussis, Tetanus Vaccination: No Review of Systems - Review of Systems Constitutional: No symptoms reported EENT: No symptoms reported Cardiovascular: No symptoms reported Respiratory: No symptoms reported Gastrointestinal: See HPI, Abdominal pain, Nausea, Vomiting, Poor appetite - only in last few hrs, Poor fluid intake - only in last few hours. denies: Abdomen distended, Diarrhea, Constipation, Blood streaked bowels, Blood in vomit, Black stools, Rectal bleeding, Fecal incontinence Genitourinary: No symptoms reported Female Genitourinary: No symptoms reported Musculoskeletal: No symptoms reported Skin: No symptoms reported Hematologic/Lymphatic: No symptoms reported Neurological/Psychological: No symptoms reported Physical Exam - Vital signs Vitals: Temp Pulse Resp BP Pulse Ox 98.2 F 117 H 20 158/83 H 95 02/19/19 18:22 02/19/19 18:22 02/19/19 18:22 02/19/19 18:22 02/19/19 18:22 Interpretation: Hypertensive, Tachycardic. No: Bradycardic, Hypoxic, Tachypneic, Febrile - General General appearance: Appears well, Alert In distress: None - overweight, in nad, daughter w/ her in room concerned appearing - HEENT Head: Normocephalic, Atraumatic Eyes: Normal. No: Pale conjunctiva, Scleral icterus Conjunctiva: No: Injected, Purulent discharge Extraocular movements intact: Yes Pupils: PERRL Nerve palsy: No Visual macedo normal: Yes Sinus: Normal Nasal: Normal Mouth/Lips: Normal Mucous membranes: Dry Pharynx: Normal - Respiratory Respiratory status: No respiratory distress Chest status: Nontender Breath sounds: Normal Chest palpation: Normal - Cardiovascular Rhythm: Regular Heart sounds: Normal auscultation Murmur: No Pulses: Normal: Radial, Dorsalis pedis Normal capillary refill: Yes - Abdominal Distension: No distension. No: Tympanitic, Fluid wave, Distended bladder Bowel sounds: Normal Tenderness: Tender - maximally in epigastric region. much much less ttp in lower or upper guadrants. no palpable masses or omg. nonacute abd, no peritoneal signs. No: McBurney's point, Tran's sign Organomegaly: No organomegaly - Back Back: Normal, Nontender. No: Deformity/step-off, CVA tenderness, Vertebra tend erness, Wounds - Extremities General upper extremity: Normal inspection, Nontender, Normal color, Normal ROM, Normal temperature General lower extremity: Normal inspection, Nontender, Normal color, Normal ROM, Normal temperature, Normal weight bearing. No: Gonzales's sign - Neurological Neuro grossly intact: Yes Cognition: Normal Orientation: AAOx4 Tashi Coma Scale Eye Opening: Spontaneous Hampton Coma Scale Verbal: Oriented [place] Coma Scale Motor: Obeys Commands Hampton Coma Scale Total: 15 Speech: Normal Motor strength normal: LUE, RUE, LLE, RLE Sensory: Normal - Psychological Associated symptoms: Normal affect, Normal mood - Skin Skin Temperature: Warm Skin Moisture: Dry Skin Color: Normal Course - Re-evaluation Re-evalutation: gave 1l ivf HR improved. had no further vomiting while observed in ED. serial abd exams during few hours of w/u and ED observation showed progressive lessening of initial ttp epigastric region. labs including UA remarkable really only for inc lipase to 1000. i do believe pt is reliable historian and daughter is able to corroborate mom doesn't drink or have any h/o drinking. has no RUQ ttp at all, and all hepatic and GB labs are wnl, therefore i think the culprit for waqas mild pancreatitis is likely janumet on reviewing her med list. talked w/ dr. chavarria he also believes janumet likely culprit. she and daughter and i performed shared decision making; i explained if i was comfortable that she could reliably start to eat and drink, stop janumet for a day or two until calling pcp office first thing in AM to discuss ER c/f her medicine causing pancreatitis and need to f/u w/ appt tomorrow or sunday to consider plan and reevaluate her at that time. pt and daughter agree. pt able to tolerate juice. we discussed red flag signs for return and rationale of stopping janumet a day or two being ok. - Vital Signs Vital signs: Temp Pulse Resp BP Pulse Ox 99 F 95 17 149/77 H 95 02/20/19 02:10 02/20/19 02:10 02/20/19 02:10 02/20/19 02:10 02/20/19 02:10 - Laboratory Result Diagrams: 02/19/19 20:00 02/19/19 20:00 Laboratory results interpreted by me: 02/19/19 02/19/19 02/19/19 20:00 20:00 20:00 Lymph % (Auto) 5.8 L Absolute Lymphs (auto) 0.3 L Seg Neutrophils % 88.9 H VBG pH Glucose 151 H POC Glucose 152 H AST 38 H Lipase 1376.5 H 02/19/19 23:05 Lymph % (Auto) Absolute Lymphs (auto) Seg Neutrophils % VBG pH 7.44 H Glucose POC Glucose AST Lipase Discharge - Discharge Clinical Impression: Pancreatitis, acute Qualifiers: Pancreatitis type: other Acute pancreatitis complication: no infection or necrosis Qualified Code(s): K85.80 - Other acute pancreatitis without necrosis or infection Disposition: HOME, SELF-CARE Additional Instructions: Today in the emergency department you are slightly dehydrated and your labs were remarkable really only for an elevation of your lipase to 1000. You do not have any history of alcohol use in your gallbladder was not tender on exam and your labs did not show evidence of gallbladder involvement which is a common cause of pancreatitis. I think the Janumet is the medication that could be the culprit causing this inflammation of your pancreas. Therefore your sugars are not too bad and they have been under control therefore hold taking that medicine until you follow-up with your doctor either tomorrow or early next week. Try to stay hydrated but go slow and do not eat any big meals as this can cause her pancreas to be inflamed again. Fatty meals will specifically cause the problems. Also would like you to return to the ED in the meantime if you have trouble tolerating food and drink by mouth or your pain returns and is severe and persistent or you have fevers chills sweats or abdominal pain that is persistent as well. Referrals: YESI CAIN FNP [Primary Care Provider] - Follow up tomorrow (For next available appointment to discuss medication induced pancreatitis.)
[2019-02-19] MEDS ORDERED: RINGERS SOLUTION,LACTATED 1,000 ML IV ONE (20:49)
[2019-02-19 21:01] LABS: ALBUMIN 4.4 g/dL (3.5-5.0); ALKALINE PHOSPHATASE 99 U/L (38-126); ANION GAP 14 (5-19); ASPARTATE AMINO TRANSFERASE 38 U/L (14-36); BILIRUBIN,DIRECT 0.1 mg/dL (0.0-0.4); BILIRUBIN,TOTAL 0.4 mg/dL (0.2-1.3); BLOOD UREA NITROGEN 16 mg/dL (7-20); CALCIUM 9.5 mg/dL (8.4-10.2); CARBON DIOXIDE 26 mmol/L (22-30); CHLORIDE 102 mmol/L (98-107); GLUCOSE 151 mg/dL (75-110); POTASSIUM 4.2 mmol/L (3.6-5.0); TOTAL PROTEIN 7.6 g/dL (6.3-8.2)
[2019-02-19 23:22] LABS: APPEARANCE,URINE CLEAR; BILIRUBIN,URINE NEGATIVE (NEGATIVE); COLOR,URINE YELLOW; GLUCOSE, URINE NEGATIVE (NEGATIVE); KETONES,URINE NEGATIVE (NEGATIVE); LEUKOCYTE ESTERASE,URINE NEGATIVE (NEGATIVE); NITRITE,URINE NEGATIVE (NEGATIVE); PROTEIN,URINE NEGATIVE (NEGATIVE); URINE SPECIFIC GRAVITY 1.023; UROBILINOGEN,URINE NEGATIVE mg/dL (<2.0)
[2019-02-19 23:27] LABS: VENOUS BLOOD BASE EXCESS 2.8 mmol/L; VENOUS BLOOD HCO3 27.1 mmol/L (20-32); VENOUS BLOOD PCO2 40.6 mmHg (35-63); VENOUS BLOOD PH 7.44 (7.30-7.42)
[2019-02-20 02:11] VITALS: BP 149/77
== END 2019-02-20 02:11 | disposition home or self-care (01) ==
LOC: ER 18:18
DX: K85.90 Acute pancreatitis without necrosis or infection, unspecified (principal); R11.2 Nausea with vomiting, unspecified; R10.9 Unspecified abdominal pain; R10.816 Epigastric abdominal tenderness; R63.0 Anorexia; I10 Essential (primary) hypertension; E11.9 Type 2 diabetes mellitus without complications; Z79.84 Long term (current) use of oral hypoglycemic drugs; R00.0 Tachycardia, unspecified
CPT/HCPCS: 99283; 96360; 36415; 82962; 83690; 85025; 80053; 81001; 82803; J7120

== ENCOUNTER 2020-02-12 20:30 | Emergency (ER) | payer MEDICAID ==
[2020-02-12] MEDS ORDERED: KETOROLAC TROMETHAMINE 60 MG/2 ML SDV IM ONE (21:53)
[2020-02-12] MEDS ORDERED: DEXAMETHASONE 4 MG TABLET PO ONE (21:53)
--- NOTE | 2020-02-12 21:54 | ER Document Report ---
ED Extremity Problem, Lower - General Chief Complaint: Knee Pain Stated Complaint: LEFT KNEE PAIN Time Seen by Provider: 02/12/20 21:37 Primary Care Provider: YESI CAIN FNP [Primary Care Provider] - Follow up as needed KRISTIN CHEN MD [ACTIVE STAFF] - Follow up as needed Mode of Arrival: Wheelchair Information source: Patient Notes: Patient is a 59-year-old female comes emergency room complaining of left knee pain. Patient states that she is got a history of chronic knee pain and has been going to physical therapy for but is not getting any better and states that the pain to the that she cannot take it anymore. She was supposed to have an appointment with the orthopedics midlevel provider on the but she canceled that because she feels that she needs to see the doctor more importantly and cannot see him until 23 February. She is here today because she wants something done for her pain and discomfort. Patient states she has been taking ibuprofen and Tylenol without any relief. She denies any new traumatic events. Patient has recently gotten x-rays of her knee and was told she needs replacement probable TRAVEL OUTSIDE OF THE [place] IN LAST 30 DAYS: No - HPI Patient complains to provider of: Pain. No: Injury, Swelling Location: Knee Occurred: Last week Onset/Duration: Gradual, Persistent, Worse Quality of pain: Throbbing Severity: Moderate Pain Level: 3 Recent injury: No Exacerbated by: Movement, Walking Relieved by: Nothing - Related Data Allergies/Adverse Reactions: codeine Adverse Reaction (Intermediate, Verified 02/19/19 18:50) Nausea Past Medical History - General Information source: Patient - Social History Smoking Status: Never Smoker Frequency of alcohol use: None Drug Abuse: None Lives with: Family Family History: None, Reviewed & Not Pertinent Patient has homicidal ideation: No - Past Medical History Cardiac Medical History: Reports: Hx Hypercholesterolemia, Hx Hypertension Endocrine Medical History: Reports: Hx Diabetes Mellitus Type 2 Renal/ Medical History: Denies: Hx Peritoneal Dialysis Musculoskeletal Medical History: Reports Hx Arthritis - KNEES, Reports Hx Musculoskeletal Trauma Past Surgical History: Reports: Hx Oral Surgery - wisdom teeth - Immunizations Hx Diphtheria, Pertussis, Tetanus Vaccination: No Review of Systems - Review of Systems Constitutional: No symptoms reported EENT: No symptoms reported Cardiovascular: No symptoms reported Respiratory: No symptoms reported Gastrointestinal: No symptoms reported Genitourinary: No symptoms reported Female Genitourinary: No symptoms reported Musculoskeletal: See HPI, Joint pain Skin: No symptoms reported Hematologic/Lymphatic: No symptoms reported Neurological/Psychological: No symptoms reported -: Yes All other systems reviewed and negative Physical Exam - Vital signs Vitals: Temp Pulse Resp BP Pulse Ox 97.8 F 89 18 154/87 H 91 L 02/12/20 20:47 02/12/20 20:47 02/12/20 20:47 02/12/20 20:47 02/12/20 20:47 Interpretation: Hypertensive - Notes Notes: PHYSICAL EXAMINATION: GENERAL: Well-appearing, well-nourished and in no acute distress. HEAD: Atraumatic, normocephalic. EYES: Pupils equal round and reactive to light, extraocular movements intact, conjunctiva are normal. LUNGS: Breath sounds clear to auscultation bilaterally and equal. No wheezes rales or rhonchi. HEART: Regular rate and rhythm without murmurs Musculoskeletal: Examination patient's area concern is her left knee. Visualization of bilateral knees show both knees to be approximately the same size. History of bilateral degenerative knees were explained by patient. Further evaluation of the knee shows no crepitus felt on passive range of motion. She has good dorsalis pedal pulses bilaterally and good DTRs noted. She has good sensation from the inner ankles to the groin as she does from the outer ankles to the thighs no sign of saddle paresthesia. Patient does have flexion extension of the knee without any crepitus noted. She has good strength against resistance in lower extremities. NEUROLOGICAL:. Normal speech, normal gait. Normal sensory, motor exams PSYCH: Normal mood, normal affect. SKIN: Warm, Dry, normal turgor, no rashes or lesions noted. Course - Re-evaluation Re-evalutation: 02/12/20 22:22 Patient has a history of bilateral knee pain. She has seen her primary and has an appointment with orthopedic after she has gone to physical therapy but states is not getting any better. She denies any recent trauma states that the pain is gotten worse. She denies any fevers or any other indications that this may be a septic arthritis she is complaining of pain. Given this and patient did have an appointment that she canceled with the midlevel and orthopedic doctor I feel it reasonable not at this time not to do x-ray since he is having done and have her placed on some meloxicam to see if it helps her with discomfort. In the office place her in the immobilizer just for comfort sake. - Vital Signs Vital signs: Temp Pulse Resp BP Pulse Ox 97.8 F 83 18 130/59 H 100 02/12/20 22:54 02/12/20 22:54 02/12/20 20:47 02/12/20 22:54 02/12/20 22:54 - Laboratory Results Critical Laboratory Results Reviewed: No Critical Results - Radiology Results Critical Radiology Results Reviewed: No Critical Results Procedures - Immobilization Left Knee Pre-Proc Neuro Vasc Exam: Normal Immobilizer type: Knee immobilizer Performed by: PCT Post-Proc Neuro Vasc Exam: Normal Alignment checked and good: Yes Discharge - Discharge Clinical Impression: DJD (degenerative joint disease) Qualifiers: Osteoarthritis location: knee Osteoarthritis type: unspecified Laterality: left Qualified Code(s): M17.12 - Unilateral primary osteoarthritis, left knee Osteoarthritis of knees, bilateral Qualifiers: Osteoarthritis type: unspecified Qualified Code(s): M17.0 - Bilateral primary osteoarthritis of knee Condition: Stable Disposition: HOME, SELF-CARE Instructions: Arthritis ([facility]), Use of Crutches ([facility]), Ice & Elevation ([facility]), Knee Immobilizing Splint ([facility]) Additional Instructions: Since you are unable appointment set up with your orthopedic colleague recommended to contact them if you be getting earlier appointment. I understand if you wanted to see your doctor but since you were able to have an appointment with the midlevel on the I suggest that you keep that and let them evaluate facility your orthopedic doctor has an idea what he is looking at 1 we finally do get to see him. In the meantime I am placing you on an anti-inflammatory that I believe will help with your pain and discomfort. We are placing you in a knee immobilizer to keep the knee moving around which should give you some more stability. Given you have had no recent injuries and that this is a chronic standing problem is just getting worse I do not feel any further intervention or x-rays are warranted at this time. Should you have any new symptomatology or problems you can return to ER for reevaluation. I am also giving you the name of the orthopedist business risk consultant if you cannot get in. Your orthopedist has not seen orthopedics yet you can contact this office to see if they can accommodate you. Prescriptions: Meloxicam [Mobic 7.5 mg Tablet] 7.5 mg PO BID #21 tablet Forms: Elevated Blood Pressure Referrals: YESI CAIN FNP [Primary Care Provider] - Follow up as needed KRISTIN CHEN MD [ACTIVE STAFF] - Follow up as needed
[2020-02-12 22:55] VITALS: BP 130/59
== END 2020-02-12 23:30 | disposition home or self-care (01) ==
LOC: ER 20:30
DX: M17.0 Bilateral primary osteoarthritis of knee (principal); M25.562 Pain in left knee; I10 Essential (primary) hypertension; E11.9 Type 2 diabetes mellitus without complications
CPT/HCPCS: 99284; 96372; 82962; J3490; J1885; J8540